=== PATIENT | female | born 1975 | race Two or more races ===

== ENCOUNTER → 2016-06-30 | Outpatient (CLI) | payer OTHER ==
--- NOTE | 2016-06-30 22:22 | ECGEPIP ---
Stationary ECG Study [facility] Test Date: 2016-06-30 Pat Name: JOSE KNOWLES Department: Room: - Gender: F Senior Graphic Designer: : [id number] Requested By: MANI Whalen CNM Order Number: [id number] Reading MD: Samm Celeste Measurements Intervals [place] Rate: 69 P: 50 ID: [id number] QRS: 73 QRSD: 88 T: 51 QT: 433 QTc: 465 Interpretive Statements Normal sinus rhythm Normal EKG Comparison tracing not on file Electronically Signed On 06-30-2016 22:22:09 EDT by Samm Celeste
== END ==
LOC: M EKG 11:30
PROVIDERS: ATTEND Advanced Practice Midwife
DX: O24.111 Pre-existing type 2 diabetes mellitus, in pregnancy, first trimester (principal); O09.511 Supervision of elderly primigravida, first trimester; Z3A.13 13 weeks gestation of pregnancy